=== PATIENT | male | born 1965 | race Caucasian/White ===

== ENCOUNTER → 2020-02-23 | Emergency (ER) | payer OTHER ==
[~2020-02-23] VITALS: Ht 177.8 cm; Wt 104.3 kg
[~2020-02-23] MED LIST: diphenhdrAMINE HCL 50 MG/1 ML VL IM ONE; methylPREDNISolone SOD SUCC 125 MG/2 ML VL IM ONE
[2020-02-24 00:10] VITALS: BP 158/94
== END | disposition home or self-care (01) ==
LOC: ER 23:59
DX: R22.0 Localized swelling, mass and lump, head (principal); Z53.21 Procedure and treatment not carried out due to patient leaving prior to being seen by health care provider

== ENCOUNTER 2020-03-23 16:06 | Emergency (ER) | payer OTHER ==
[~2020-03-23] VITALS: Ht 170.2 cm; Wt 81.6 kg
[2020-03-23 16:16] VITALS: BP 114/84
== END 2020-03-23 22:22 | disposition left against medical advice (07) ==
LOC: EDSEX 16:06 → EDBD 16:06 → ER 16:06 → EDUNIT# 16:06 → ER 19:42
DX: R11.2 Nausea with vomiting, unspecified (principal); Z53.21 Procedure and treatment not carried out due to patient leaving prior to being seen by health care provider
CPT/HCPCS: 71045

== ENCOUNTER 2021-05-05 22:14 | Emergency (ER) | payer OTHER, MEDICAID ==
[~2021-05-05] VITALS: Ht 177.8 cm; Wt 99.8 kg
[2021-05-05] MEDS ORDERED: HYDROcodone-ACET 5/325MG TAB PO ONE (23:30)
[2021-05-05] MEDS ORDERED: KETOROLAC TROMETH 60MG/2ML VIAL IM ONE (23:30)
[2021-05-05] MEDS ORDERED: CYCLOBENZAPRINE HCL 10 MG TAB PO ONE (23:30)
[2021-05-05 23:44] LABS: Basophils # (auto) 0.1 10 ^3/uL (0-0.2); Basophils % (auto) 1.2 % (0.0-2.0); Eosinophils # (auto) 0.2 10 ^3/uL (0-0.8); Eosinophils % (auto) 2.2 % (0.0-7.0); Hemoglobin 15.3 g/dL (13.5-17.5); Lymphocytes # (auto) 3.5 10 ^3/uL (0.4-5.4); Lymphocytes % (auto) 37.1 % (10.0-50.0); Mean Corpuscular Hemoglobin 33.5 pg (28.0-32.0); Mean Corpuscular Hgb Conc. 35.5 g/dL (32.0-36.0); Mean Corpuscular Volume 94.4 fL (80.0-100.0); Monocytes # (auto) 0.8 10 ^3/uL (0-1.3); Monocytes % (auto) 8.7 % (0.0-12.0); Neutrophils # (auto) 4.7 10 ^3/uL (1.6-8.6); Neutrophils % (auto) 50.8 % (37.0-80.0); Nucleated Red Blood Cells % 0.1 %; Red Blood Cells 4.55 10^6/uL (4.5-5.90); Red Cell Distribution Width 14.1 % (11.8-14.3); White Blood Cell 9.3 10^3/uL (4.4-10.8)
[2021-05-06 00:04] LABS: Albumin 3.9 g/dL (3.4-5.0); BUN/Creatinine Ratio 9.3; Calcium 8.4 mg/dL (8.5-10.1); Potassium 3.6 mmol/L (3.5-5.1)
[2021-05-06 00:07] LABS: Bilirubin, Total 0.4 mg/dL (0.2-1.0); Total Protein 7.1 g/dL (6.4-8.2)
[2021-05-06 03:55] VITALS: BP 165/110
== END 2021-05-06 04:03 | disposition home or self-care (01) ==
LOC: ER 22:14
DX: M54.41 Lumbago with sciatica, right side (principal); M79.661 Pain in right lower leg
CPT/HCPCS: 36415; 72131; 80053; 85025; 93971; 96372; 99284; J1885

== ENCOUNTER 2021-05-15 08:09 | Emergency (ER) | payer OTHER, MEDICAID ==
[~2021-05-15] VITALS: Ht 177.8 cm; Wt 95.3 kg
[2021-05-15] MEDS ORDERED: KETOROLAC TROMETH 60MG/2ML VIAL IM ONE (09:15)
[2021-05-15 09:34] VITALS: BP 143/96
== END 2021-05-15 10:10 | disposition home or self-care (01) ==
LOC: ER 08:09
DX: M54.31 Sciatica, right side (principal); M48.061 Spinal stenosis, lumbar region without neurogenic claudication; M43.16 Spondylolisthesis, lumbar region; F12.10 Cannabis abuse, uncomplicated
CPT/HCPCS: 96372; 99283; J1885

== ENCOUNTER 2023-01-11 12:24 | Emergency (ER) | payer MEDICAID ==
[~2023-01-11] VITALS: Ht 175.3 cm; Wt 113.1 kg
[2023-01-11 12:56] LABS: Urine WBC None Seen /hpf (0 - 3)
[2023-01-11 13:11] LABS: Urine Bacteria NONE SEEN /hpf (None Seen); Urine Blood Negative /uL (Negative); Urine Specific Gravity 1.013 (1.001-1.035)
[2023-01-11] MEDS ORDERED: KETOROLAC TROMETH 60MG/2ML VIAL IM ONE (17:00)
[2023-01-11 17:09] LABS: Basophils # (auto) 0.1 10 ^3/uL (0-0.2); Basophils % (auto) 0.7 % (0.0-2.0); Eosinophils # (auto) 0.2 10 ^3/uL (0-0.8); Eosinophils % (auto) 1.9 % (0.0-7.0); Hematocrit 43.2 % (41.0-53.0); Hemoglobin 14.8 g/dL (13.5-17.5); Lymphocytes # (auto) 2.9 10 ^3/uL (0.4-5.4); Lymphocytes % (auto) 33.9 % (10.0-50.0); Mean Corpuscular Hemoglobin 32.8 pg (28.0-32.0); Mean Corpuscular Hgb Conc. 34.3 g/dL (32.0-36.0); Mean Corpuscular Volume 95.7 fL (80.0-100.0); Monocytes # (auto) 0.7 10 ^3/uL (0-1.3); Monocytes % (auto) 8.1 % (0.0-12.0); Neutrophils # (auto) 4.8 10 ^3/uL (1.6-8.6); Neutrophils % (auto) 55.4 % (37.0-80.0); Nucleated Red Blood Cells % 0.2 %; Red Blood Cells 4.51 10^6/uL (4.5-5.90); Red Cell Distribution Width 13.9 % (11.8-14.3); White Blood Cell 8.6 10^3/uL (4.4-10.8)
[2023-01-11 17:26] LABS: Albumin 3.8 g/dL (3.4-5.0); BUN/Creatinine Ratio 9.9 (10.0-20.0); Calcium 8.4 mg/dL (8.5-10.1); Potassium 3.4 mmol/L (3.5-5.1)
[2023-01-11 17:29] LABS: Bilirubin, Total 0.4 mg/dL (0.2-1.0); Total Protein 7.5 g/dL (6.4-8.2)
[2023-01-11 19:45] VITALS: BP 156/92; PULSE 63; RESP 20; TEMP 98.1; O2SAT 95
== END 2023-01-11 19:52 | disposition home or self-care (01) ==
LOC: ER 12:24
DX: R60.0 Localized edema (principal); F12.10 Cannabis abuse, uncomplicated; R06.02 Shortness of breath; Z21 Asymptomatic human immunodeficiency virus [HIV] infection status
CPT/HCPCS: 36415; 80053; 81001; 83880; 84484; 85025; 93970; 96372; 99285; J1885

== ENCOUNTER 2023-01-17 07:42 | Emergency (ER) | payer MEDICAID ==
[~2023-01-17] VITALS: Ht 177.8 cm; Wt 114.0 kg
[2023-01-17 08:28] VITALS: BP 151/95; PULSE 80; RESP 20; TEMP 97.3; O2SAT 95
[2023-01-17] MEDS ORDERED: FURO1TAB31 PO (08:29)
[2023-01-17] MEDS ORDERED: POTA10TA51 PO (08:29)
[2023-01-17] MEDS ORDERED: METH4PAK PO (08:29)
[2023-01-17] MEDS ORDERED: EPINEPHrine HCL 1 MG/1 ML AMP SC ONE (08:30)
== END 2023-01-17 08:57 | disposition home or self-care (01) ==
LOC: ER 07:42
DX: R60.0 Localized edema (principal); T78.40XA Allergy, unspecified, initial encounter; F17.210 Nicotine dependence, cigarettes, uncomplicated; F12.10 Cannabis abuse, uncomplicated; X58.XXXA Exposure to other specified factors, initial encounter
CPT/HCPCS: 96372; 99283; J0171

== ENCOUNTER 2023-01-28 16:52 | Inpatient (IN) | payer MEDICAID ==
[~2023-01-28] VITALS: Ht 175.3 cm; Wt 111.3 kg
[~2023-01-28 16:52] MED LIST changes: +FURO1TAB31 PO; +METH4PAK PO; +POTA10TA51 PO; -diphenhdrAMINE HCL 50 MG/1 ML VL IM ONE; -methylPREDNISolone SOD SUCC 125 MG/2 ML VL IM ONE
[2023-01-28 17:42] LABS: Basophils # (auto) 0.1 10 ^3/uL (0-0.2); Eosinophils # (auto) 0.1 10 ^3/uL (0-0.8); Eosinophils % (auto) 1.2 % (0.0-7.0); Hematocrit 45.8 % (41.0-53.0); Hemoglobin 15.6 g/dL (13.5-17.5); Lymphocytes # (auto) 3.7 10 ^3/uL (0.4-5.4); Lymphocytes % (auto) 38.9 % (10.0-50.0); Mean Corpuscular Hgb Conc. 34.1 g/dL (32.0-36.0); Mean Corpuscular Volume 93.6 fL (80.0-100.0); Monocytes # (auto) 0.8 10 ^3/uL (0-1.3); Monocytes % (auto) 8.1 % (0.0-12.0); Neutrophils # (auto) 4.8 10 ^3/uL (1.6-8.6); Neutrophils % (auto) 50.8 % (37.0-80.0); Nucleated Red Blood Cells % 0.1 %; Red Blood Cells 4.89 10^6/uL (4.5-5.90); Red Cell Distribution Width 13.6 % (11.8-14.3); White Blood Cell 9.4 10^3/uL (4.4-10.8)
[2023-01-28 18:01] LABS: Albumin 4.2 g/dL (3.4-5.0); Calcium 8.8 mg/dL (8.7-10.4); Potassium 3.9 mmol/L (3.5-5.1)
[2023-01-28 18:11] LABS: BUN/Creatinine Ratio 12.1 (10.0-20.0); Bilirubin, Total 0.5 mg/dL (0.2-1.0); Total Protein 7.4 g/dL (6.4-8.2)
[2023-01-28] MEDS ORDERED: KETOROLAC TROMETH 30 MG/ML 1ML VIAL IM ONE (18:15)
[2023-01-28] MEDS ORDERED: NITROGLYCERIN 0.4 MG SL TAB SL PRN (21:30)
[2023-01-28] MEDS ORDERED: NITROGLYCERIN 0.4 MG SL TAB SL ONE ×2 (21:30)
[2023-01-28] MEDS ORDERED: ENOXAPARIN SOD 120 MG/0.8 ML SYRINGE SC ONE (21:30)
[2023-01-28] MEDS ORDERED: ONDANSETRON HCL 4 MG/2 ML VIAL IV ONE (21:30)
[2023-01-28] MEDS ORDERED: MORPHINE SULFATE 4 MG/ML SYR/VIAL IV ONE (21:30)
[2023-01-28] MEDS ORDERED: MORPHINE SULFATE INJ 2 MG/ml SYRG IV PRN (21:30)
[2023-01-28] MEDS ORDERED: TEMAZEPAM 15 MG CAP PO PRN (21:30)
[2023-01-28] MEDS ORDERED: ASPirin 81 mg TAB PO ONE (21:30)
[2023-01-29] VITALS (8 sets, daily range): BP systolic 148–176; BP diastolic 77–100; PULSE 63–89; RESP 12–20; TEMP 97.5–97.9; O2SAT 93–100
[2023-01-29] MEDS: ATORVASTATIN 20 MG TAB PO SCH ×2 (01:58→22:19)
[2023-01-29 05:48] LABS: Basophils # (auto) 0.1 10 ^3/uL (0-0.2); Eosinophils # (auto) 0.1 10 ^3/uL (0-0.8); Eosinophils % (auto) 1.5 % (0.0-7.0); Hemoglobin 14.9 g/dL (13.5-17.5); Lymphocytes # (auto) 3.2 10 ^3/uL (0.4-5.4); Lymphocytes % (auto) 35.7 % (10.0-50.0); Mean Corpuscular Hemoglobin 32.4 pg (28.0-32.0); Mean Corpuscular Hgb Conc. 33.9 g/dL (32.0-36.0); Mean Corpuscular Volume 95.4 fL (80.0-100.0); Monocytes # (auto) 0.7 10 ^3/uL (0-1.3); Monocytes % (auto) 7.5 % (0.0-12.0); Neutrophils # (auto) 4.8 10 ^3/uL (1.6-8.6); Neutrophils % (auto) 54.3 % (37.0-80.0); Nucleated Red Blood Cells % 0.1 %; Red Blood Cells 4.61 10^6/uL (4.5-5.90); Red Cell Distribution Width 13.9 % (11.8-14.3); White Blood Cell 8.8 10^3/uL (4.4-10.8)
[2023-01-29 06:08] LABS: BUN/Creatinine Ratio 12.5 (10.0-20.0); Calcium 8.5 mg/dL (8.7-10.4); Potassium 3.7 mmol/L (3.5-5.1)
[2023-01-29] MEDS: PANTOPRAZOLE 40 MG TAB PO SCH (09:20)
[2023-01-29] MEDS: HYDROcodone-ACET 5/325MG TAB PO PRN ×2 (09:20→15:13)
[2023-01-29] MEDS ORDERED: BICT1TAB PO (09:23)
[2023-01-29] MEDS: FUROSEMIDE 20 MG TAB PO SCH (09:25)
[2023-01-29] MEDS ORDERED: ENOXAPARIN SOD 40 MG/0.4 ML SYRINGE SC SCH (10:00)
[2023-01-29] MEDS ORDERED: ASPirin 81 mg TAB PO SCH (10:00)
[2023-01-29] MEDS ORDERED: LISINOPRIL 10 MG TAB PO SCH (10:00)
[2023-01-29] MEDS: ONDANSETRON HCL 4 MG/2 ML VIAL IV PRN ×3 (10:26→19:16)
[2023-01-29 15:10] LABS: Triglycerides 114 mg/dL (< 150)
[2023-01-29 15:11] LABS: LDL Cholesterol 161 mg/dL (< 100)
[2023-01-29 15:12] LABS: Cholesterol 201 mg/dL (< 200); HDL Cholesterol 36 mg/dL (40-59)
[2023-01-29] MEDS ORDERED: fentaNYL CITRATE 100 MCG/2 ML VL ONE (17:28)
[2023-01-29] MEDS ORDERED: VERAPAMIL 2.5MG/ML INJ 2ML VIAL IV ONE (17:28)
[2023-01-29] MEDS ORDERED: HEPARIN SODIUM (PORCINE) 5000 UNITS/ML 1ML VIAL ONE ×2 (17:28→18:06)
[2023-01-29] MEDS ORDERED: LIDOCAINE 2%HCL (LOCAL ANESTH.) INJ 20ML MDV ONE (17:29)
[2023-01-29] MEDS ORDERED: MIDAZOLAM HCL 2MG/2ML 2ml VIAL (1mg/ml) ONE (17:29)
[2023-01-29] MEDS ORDERED: IODIXANOL 320MG/ML 100ML BTL IV ONE ×2 (17:30→18:23)
[2023-01-29 17:42] LABS: INR 1.05 (0.9-1.15)
[2023-01-29] MEDS ORDERED: CLOPIDOGREL 300 MG TAB ONE (18:24)
[2023-01-29] MEDS ORDERED: ACETAMINOPHEN 325 MG TAB PO ONE (18:45)
[2023-01-29] MEDS ORDERED: SODIUM CHLORIDE 0.9% 1,000 ML IV ONE (19:00)
[2023-01-29] MEDS ORDERED: hydrALAZINE HCL 20 MG/ML VL IV ONE (19:45)
[2023-01-30 05:00] VITALS: BP 171/101; PULSE 81; RESP 14; TEMP 98.2; O2SAT 98
[2023-01-30] MEDS: ACETAMINOPHEN 325 MG TAB PO PRN ×2 (05:16→12:00)
[2023-01-30 08:00] VITALS: PULSE 66; PULSE 78; RESP 14
[2023-01-30] MEDS: PANTOPRAZOLE 40 MG TAB PO SCH (09:03)
[2023-01-30] MEDS: FUROSEMIDE 20 MG TAB PO SCH (09:06)
[2023-01-30] MEDS ORDERED: METOPROLOL SUCCINATE XL 50 MG TAB PO SCH (10:00)
[2023-01-30] MEDS ORDERED: CLOPIDOGREL BISULFATE 75 MG TAB PO SCH (10:00)
[2023-01-30] MEDS ORDERED: LISINOPRIL 10 MG TAB PO SCH (10:00)
[2023-01-30] MEDS ORDERED: ASPirin 81 mg TAB PO SCH (10:00)
[2023-01-30 10:06] LABS: Anion Gap 8.8 (5-15); Calcium 9.2 mg/dL (8.5-10.1); Carbon Dioxide 24.2 mmol/L (20-30); Chloride 105 mmol/L (98-107); Potassium 3.7 mmol/L (3.5-5.1); Sodium 138 mmol/L (136-145)
[2023-01-30 10:12] LABS: BUN/Creatinine Ratio 10.4 (10.0-20.0); Blood Urea Nitrogen 10 mg/dL (9-23); Glucose 111 mg/dL (74-106)
[2023-01-30] MEDS: ONDANSETRON HCL 4 MG/2 ML VIAL IV PRN (10:21)
[2023-01-30 10:33] VITALS: BP 165/98; PULSE 75; RESP 14
[2023-01-30] MEDS ORDERED: METO25TA93 PO (11:22)
[2023-01-30] MEDS ORDERED: FURO1TAB33 PO (11:22)
[2023-01-30] MEDS ORDERED: LISI20TA56 PO (11:22)
[2023-01-30] MEDS ORDERED: ASPI1TAB20 PO (11:22)
[2023-01-30] MEDS ORDERED: ATO40T PO (11:22)
[2023-01-30] MEDS ORDERED: CLOP75TA28 PO (11:24)
[2023-01-30 12:57] VITALS: PULSE 78
[2023-01-30 13:00] VITALS: BP 151/82; PULSE 82; RESP 18; TEMP 98.4; O2SAT 93
[2023-01-30] MEDS ORDERED: ATORVASTATIN 20 MG TAB PO SCH (22:00)
== END 2023-01-30 14:20 | disposition home or self-care (01) | DRG 174 ==
LOC: ER 16:52 → TELE 21:27 → TELE-WESTW 01-29 20:10
PROVIDERS: ADMIT Nurse Practitioner; ATTEND Family Medicine
PROC: 027035Z Dilation of Coronary Artery, One Artery with Two Drug-eluting Intraluminal Devices, Percutaneous Approach (ICD-10-PCS; principal; 2023-01-29)
PROC: B211YZZ Fluoroscopy of Multiple Coronary Arteries using Other Contrast (ICD-10-PCS; 2023-01-29)
PROC: 4A023N7 Measurement of Cardiac Sampling and Pressure, Left Heart, Percutaneous Approach (ICD-10-PCS; 2023-01-29)
PROC: B241ZZ3 Ultrasonography of Multiple Coronary Arteries, Intravascular (ICD-10-PCS; 2023-01-29)
DX: I21.4 Non-ST elevation (NSTEMI) myocardial infarction (principal); E66.9 Obesity, unspecified; I25.119 Atherosclerotic heart disease of native coronary artery with unspecified angina pectoris; F12.90 Cannabis use, unspecified, uncomplicated; F17.210 Nicotine dependence, cigarettes, uncomplicated; E78.00 Pure hypercholesterolemia, unspecified; I10 Essential (primary) hypertension; Z79.899 Other long term (current) drug therapy; Z79.84 Long term (current) use of oral hypoglycemic drugs; Z68.36 Body mass index [BMI] 36.0-36.9, adult; Z21 Asymptomatic human immunodeficiency virus [HIV] infection status
CPT/HCPCS: 36415; 71045; 76937; 80048; 80053; 80061; 82962; 83036; 83880; 84443; 84484; 85025; 85610; 92941; 93005; 93306; 93458; 99152; G0378; J2250; J2405; Q9967

== ENCOUNTER 2023-02-16 13:20 | Inpatient (IN) | payer MEDICAID ==
[~2023-02-16] VITALS: Ht 175.3 cm; Wt 104.0 kg
[~2023-02-16 13:20] MED LIST changes: +ASPI1TAB20 PO; +ATO40T PO; +BICT1TAB PO; +CLOP75TA28 PO; +FURO1TAB33 PO; +LISI20TA56 PO; +METO25TA93 PO
[2023-02-16 14:04] LABS: Basophils # (auto) 0 10 ^3/uL (0-0.2); Basophils % (auto) 0.4 % (0.0-2.0); Eosinophils # (auto) 0 10 ^3/uL (0-0.8); Eosinophils % (auto) 0.4 % (0.0-7.0); Hematocrit 46.2 % (41.0-53.0); Hemoglobin 15.9 g/dL (13.5-17.5); Lymphocytes # (auto) 1.7 10 ^3/uL (0.4-5.4); Lymphocytes % (auto) 18.1 % (10.0-50.0); Mean Corpuscular Hemoglobin 32.2 pg (28.0-32.0); Mean Corpuscular Hgb Conc. 34.3 g/dL (32.0-36.0); Mean Corpuscular Volume 93.7 fL (80.0-100.0); Monocytes # (auto) 0.3 10 ^3/uL (0-1.3); Monocytes % (auto) 3.6 % (0.0-12.0); Neutrophils # (auto) 7.3 10 ^3/uL (1.6-8.6); Neutrophils % (auto) 77.5 % (37.0-80.0); Nucleated Red Blood Cells % 0.1 %; Red Blood Cells 4.93 10^6/uL (4.5-5.90); Red Cell Distribution Width 13.5 % (11.8-14.3); White Blood Cell 9.4 10^3/uL (4.4-10.8)
[2023-02-16 14:20] LABS: Anion Gap 12.8 (5-15); Calcium 9.9 mg/dL (8.5-10.1); Carbon Dioxide 19.2 mmol/L (20-30); Chloride 108 mmol/L (98-107); Potassium 4.2 mmol/L (3.5-5.1); Sodium 140 mmol/L (136-145)
[2023-02-16 14:21] LABS: INR 1.09 (0.9-1.15); Partial Thromboplastin Time 23.4 SEC (24.5-34.5); Prothrombin Time 11.4 sec (9.3-11.8)
[2023-02-16 14:25] LABS: Alanine Aminotransferase 30 U/L (7-40); Albumin 4.7 g/dL (3.2-4.8); Alkaline Phosphatase 67 U/L (46-116); Aspartate Aminotransferase 23 U/L (13-40); BUN/Creatinine Ratio 10.5 (10.0-20.0); Blood Urea Nitrogen 14 mg/dL (9-23); Glucose 150 mg/dL (74-106); Magnesium 1.9 mg/dL (1.6-2.6)
[2023-02-16 14:26] LABS: Bilirubin, Total 0.8 mg/dL (0.2-1.0); Total Protein 7.3 g/dL (5.7-8.2)
[2023-02-16 15:30] VITALS: PULSE 70; O2SAT 98
[2023-02-16] MEDS ORDERED: LABETALOL HCL 5 MG/ML 4ML SYRINGE IV ONE (15:30)
[2023-02-16] MEDS ORDERED: PROCHLORPERAZINE EDISYLATE 5 MG/ML 2ML VIAL IV ONE (15:30)
[2023-02-16] MEDS ORDERED: hydrALAZINE HCL 20 MG/ML VL IV ONE (15:45)
[2023-02-16] MEDS ORDERED: NITROGLYCERIN 0.4 MG SL TAB SL PRN (16:45)
[2023-02-16] MEDS ORDERED: MORPHINE SULFATE INJ 2 MG/ml SYRG IV PRN (16:45)
[2023-02-16] MEDS ORDERED: ONDANSETRON HCL 4 MG/2 ML VIAL IV PRN (16:45)
[2023-02-16] MEDS: SODIUM CHLORIDE 0.9% 1,000 ML IV SCH (16:45)
[2023-02-16] MEDS ORDERED: PANTOPRAZOLE 40 MG/10 ML VIAL INJ IV ONE (16:45)
[2023-02-16 19:30] VITALS: PULSE 98; RESP 20; O2SAT 92
[2023-02-16] MEDS: METOPROLOL TARTRATE 25 MG TAB PO SCH (22:04)
[2023-02-16] MEDS: ACETAMINOPHEN 325 MG TAB PO PRN (22:09)
[2023-02-16] MEDS ORDERED: MELATONIN 5 MG TAB PO ONE (22:30)
[2023-02-17 01:44] VITALS: BP 148/81; PULSE 74; PULSE 82; RESP 18; TEMP 36.7
[2023-02-17] MEDS: hydrALAZINE HCL 20 MG/ML VL IV PRN ×2 (02:54→12:28)
[2023-02-17 05:00] VITALS: BP 145/89; PULSE 83; RESP 17; TEMP 97.8; O2SAT 96
[2023-02-17 06:00] LABS: Alanine Aminotransferase 23 U/L (7-40); Albumin 4.6 g/dL (3.2-4.8); Alkaline Phosphatase 65 U/L (46-116); Anion Gap 7.2 (5-15); Aspartate Aminotransferase 17 U/L (13-40); BUN/Creatinine Ratio 8.8 (10.0-20.0); Bilirubin, Total 0.6 mg/dL (0.2-1.0); Blood Urea Nitrogen 10 mg/dL (9-23); Calcium 9.3 mg/dL (8.7-10.4); Carbon Dioxide 23.8 mmol/L (20-30); Chloride 107 mmol/L (98-107); Glucose 123 mg/dL (74-106); Potassium 3.3 mmol/L (3.5-5.1); Sodium 138 mmol/L (136-145); Total Protein 7.3 g/dL (5.7-8.2)
[2023-02-17 06:09] LABS: Basophils # (auto) 0 10 ^3/uL (0-0.2); Basophils % (auto) 0.2 % (0.0-2.0); Eosinophils # (auto) 0.2 10 ^3/uL (0-0.8); Eosinophils % (auto) 1.7 % (0.0-7.0); Hematocrit 44.5 % (41.0-53.0); Hemoglobin 15.3 g/dL (13.5-17.5); Lymphocytes # (auto) 1.9 10 ^3/uL (0.4-5.4); Lymphocytes % (auto) 20.4 % (10.0-50.0); Mean Corpuscular Hemoglobin 32.2 pg (28.0-32.0); Mean Corpuscular Hgb Conc. 34.3 g/dL (32.0-36.0); Mean Corpuscular Volume 93.9 fL (80.0-100.0); Monocytes # (auto) 0.7 10 ^3/uL (0-1.3); Monocytes % (auto) 7.6 % (0.0-12.0); Neutrophils # (auto) 6.7 10 ^3/uL (1.6-8.6); Neutrophils % (auto) 70.1 % (37.0-80.0); Nucleated Red Blood Cells % 0.1 %; Red Blood Cells 4.74 10^6/uL (4.5-5.90); Red Cell Distribution Width 13.6 % (11.8-14.3); White Blood Cell 9.5 10^3/uL (4.4-10.8)
[2023-02-17] MEDS ORDERED: LISI20TA56 PO (06:58)
[2023-02-17 08:30] VITALS: BP 155/85; PULSE 75; RESP 21; TEMP 97.9; O2SAT 98
[2023-02-17] MEDS: ACETAMINOPHEN 325 MG TAB PO PRN (09:18)
[2023-02-17] MEDS: SODIUM CHLORIDE 0.9% 1,000 ML IV SCH (09:25)
[2023-02-17] MEDS ORDERED: ATORVASTATIN 20 MG TAB PO SCH (10:00)
[2023-02-17] MEDS ORDERED: CLOPIDOGREL BISULFATE 75 MG TAB PO SCH (10:00)
[2023-02-17] MEDS ORDERED: PANTOPRAZOLE 40 MG/10 ML VIAL INJ IV SCH (10:00)
[2023-02-17] MEDS ORDERED: FUROSEMIDE 20 MG TAB PO SCH (10:00)
[2023-02-17] MEDS ORDERED: ASPirin-EC 81 mg tab PO SCH (10:00)
[2023-02-17] MEDS ORDERED: POTASSIUM CHL 10 Meq TABLET PO SCH (10:00)
[2023-02-17] MEDS ORDERED: LISINOPRIL 20 MG TAB PO SCH ×2 (10:00)
[2023-02-17] MEDS: METOPROLOL TARTRATE 25 MG TAB PO SCH (10:44)
[2023-02-17 13:20] LABS: COVID19 ANTIGEN SOFIA FIA NEGATIVE (NEGATIVE)
[2023-02-17 13:32] VITALS: BP 170/90; PULSE 76; RESP 18; TEMP 98.2; O2SAT 97
[2023-02-17] MEDS ORDERED: AML5T PO (16:38)
[2023-02-17] MEDS ORDERED: MET25T PO (16:38)
[2023-02-17 16:43] VITALS: BP 131/69; PULSE 95; RESP 20; TEMP 98.8; O2SAT 98
[2023-02-18] MEDS ORDERED: amLODIPine BESYLATE 5 MG TAB PO SCH (10:00)
== END 2023-02-17 18:10 | disposition home or self-care (01) | DRG 199 ==
LOC: ER 13:20 → EDBD 13:20 → TELE 16:48 → TELE-WESTW 23:07
PROVIDERS: ADMIT Nurse Practitioner Family; ATTEND Nurse Practitioner Family
DX: I16.0 Hypertensive urgency (principal); N17.9 Acute kidney failure, unspecified; E66.01 Morbid (severe) obesity due to excess calories; E78.5 Hyperlipidemia, unspecified; I10 Essential (primary) hypertension; R73.9 Hyperglycemia, unspecified; I25.10 Atherosclerotic heart disease of native coronary artery without angina pectoris; Z68.33 Body mass index [BMI] 33.0-33.9, adult; Z95.5 Presence of coronary angioplasty implant and graft
CPT/HCPCS: 36415; 71045; 71275; 80053; 83735; 83880; 84484; 85025; 85379; 85610; 85730; 87081; 87426; 93005; 96374; 96375; C9113; G0378; J3490